=== PATIENT | male | born 1990 | race African-American/Black ===

== ENCOUNTER 2024-01-30 | Emergency (ER) | payer OTHER ==
[2024-01-30] VITALS: BP 128/86; PULSE 90; RESP 17; TEMP 98.1; O2SAT 99
[~2024-01-30] VITALS: Ht 182.9 cm; Wt 95.3 kg
[2024-01-30 00:05] VITALS: BP 128/86; PULSE 90; RESP 17; TEMP 98.1; O2SAT 99
== END 2024-01-30 02:36 | disposition home or self-care (01) ==
LOC: MED
DX: M79.672 Pain in left foot (principal); M79.671 Pain in right foot; Z59.00 Homelessness unspecified
CPT/HCPCS: 99283

== ENCOUNTER 2024-01-30 14:01 | Emergency (ER) | payer OTHER ==
[~2024-01-30] VITALS: Ht 195.6 cm; Wt 110.7 kg
[2024-01-30 14:03] VITALS: BP 121/66; PULSE 83; RESP 16; TEMP 99; O2SAT 96
[2024-01-30] MEDS: ACETAMINOPHEN EXTRA STRENGTH 500 MG TAB PO ONE (16:38)
== END 2024-01-30 16:46 | disposition home or self-care (01) ==
LOC: MED 14:01
DX: M79.671 Pain in right foot (principal); M79.672 Pain in left foot; T73.0XXA Starvation, initial encounter; Z79.899 Other long term (current) drug therapy; X58.XXXA Exposure to other specified factors, initial encounter
CPT/HCPCS: 99282

== ENCOUNTER 2024-02-07 00:31 | Emergency (ER) | payer OTHER ==
[~2024-02-07] VITALS: Ht 195.6 cm; Wt 72.6 kg
[2024-02-07 00:34] VITALS: BP 148/76; PULSE 82; RESP 16; TEMP 96.5; O2SAT 100
[2024-02-07 01:00] VITALS: BP 138/76; PULSE 80; RESP 16; TEMP 97.5
[2024-02-07 01:01] VITALS: O2SAT 100
[2024-02-07] MEDS ORDERED: NYST-71 TP (01:16)
== END 2024-02-07 01:20 | disposition home or self-care (01) ==
LOC: MED 00:31
DX: B35.6 Tinea cruris (principal); Z79.899 Other long term (current) drug therapy
CPT/HCPCS: 99283

== ENCOUNTER 2024-07-23 06:59 | Emergency (ER) | payer BC, MEDICAID ==
[~2024-07-23] VITALS: Ht 190.5 cm; Wt 90.7 kg
[~2024-07-23 06:59] MED LIST: NYST-71 TP
[2024-07-23 07:00] VITALS: BP 149/93; PULSE 67; RESP 16; TEMP 98.9; O2SAT 97
[2024-07-23] MEDS ORDERED: NAPR-1704 PO (07:24)
[2024-07-23] MEDS ORDERED: CEPH-588 PO (07:24)
[2024-07-23] MEDS ORDERED: LOTC TP (07:24)
[2024-07-23] MEDS: IBUPROFEN 400 MG TAB PO ONE (07:33)
== END 2024-07-23 08:05 | disposition home or self-care (01) ==
LOC: MED 06:59
DX: M72.2 Plantar fascial fibromatosis (principal); L03.116 Cellulitis of left lower limb; L03.115 Cellulitis of right lower limb; B35.3 Tinea pedis; Z79.899 Other long term (current) drug therapy
CPT/HCPCS: 99283